=== PATIENT | male | born 1985 ===

== ENCOUNTER 2020-11-25 18:36 | Emergency (ER) | payer SELFPAY ==
[~2020-11-25] VITALS: Ht 167.6 cm; Wt 66.2 kg
[2020-11-25 18:39] VITALS: BP 119/62
== END 2020-11-25 19:17 | disposition left against medical advice (07) ==
LOC: ED 19:10
DX: Z53.21 Procedure and treatment not carried out due to patient leaving prior to being seen by health care provider (principal)